=== PATIENT | female | born 1950 | race Two or more races ===

== ENCOUNTER 2022-02-28 10:49 | Outpatient (CLI) | payer OTHER | END 2022-02-28 10:58 | disposition home or self-care (01) | LOC: SONOGRAMA 10:49 | PROVIDERS: ATTEND Pathology Anatomic Pathology & Clinical Pathology | DX: E03.4 Atrophy of thyroid (acquired) (principal); D34 Benign neoplasm of thyroid gland; E04.1 Nontoxic single thyroid nodule ==